=== PATIENT | male | born 1990 | race Caucasian/White ===

== ENCOUNTER 2021-06-24 09:28 | Emergency (ER) | payer OTHER, SELFPAY ==
[2021-06-24 10:20] VITALS: BP 125/81; PULSE 85; RESP 16; TEMP 36.8; O2SAT 100; BMI 24.3
[2021-06-24] MEDS: Fluorescein Sodium STRIP 1 STRIP EYE-LEFT (11:50)
[2021-06-24] MEDS: Tetracaine HCl/PF 0.5% Oph Sol 4 ML DROPS 3 DROP EYE-LEFT (11:50)
--- NOTE | 2021-06-24 11:56 | ED_ITS ---
HPI - Eye Problem General Chief complaint: Eye Problems Stated complaint: piece of metal in eye - work related Time Seen by Provider: 06/24/21 10:49 History of Present Illness HPI Narrative: Patient complains of foreign body sensation and mild pain to the right eye after he was scraping paint and a chip flew into his right eye this morning, no vision loss no eye discharge no photophobia Related Data Previous Rx's Medication Instructions Recorded erythromycin 5 mg/gram (0.5 %) eye 0.5 inch OPHTHALMIC (EYE) TID 3 06/24/21 ointment Days #3.5 g Allergies Allergy/AdvReac Type Severity Reaction Status Date / Time No Known Allergies Allergy Unverified 07/18/20 15:43 Review of Systems Review of Systems: Positive for right eye foreign body sensation and mild discomfort Negatives are no vision change no vision loss no discharge fromeye no headache no photophobia no blurred vision Yes all other systems are reviewed and are negative [facility] Past Medical History Source: nursing notes reviewed Surgical History (Updated 06/24/21 @ 10:24 by Yuko Hinojsoa RN) History of hernia surgery Social History Social History Advance Directives: Yes Advance Directives Information Provided: Yes Advance Directives on File: No Physical Exam Vital Signs: Vital Signs: Last Vital Signs Temp 98.2 F 06/24/21 10:20 Pulse 85 06/24/21 10:20 Resp 16 06/24/21 10:20 BP 125/81 06/24/21 10:20 Pulse Ox 100 06/24/21 10:20 Body Mass Index 24.3 General appearance comfortable no acute distress The head is normocephalic atraumatic Eye exam visual acuity was 2025 bilaterally The left eye was normal in appearance The right eye had no redness no discharge, pupils were equal round reactive to light, extraocular motions were intact, staining of the right eye with flu orescein revealed a small area of dye uptake, no foreign body was identified The neck was supple Respiratory no distress Extremities full range of motion x4 Skin no rash Course Course Course Narrative: Patient with normal symmetric vision, no significant eye pain or photophobia, no foreign body visualized with fluorescein staining is diagnosed with small corneal abrasion and has his own eye doctor to follow with as needed Discharge Plan Discharge Clinical Impression: Corneal abrasion Patient Disposition: Home, Self-Care Additional Instructions: I did not see any foreign body There was a small scratch to the eye which we are treating with antibiotic to prevent infection Follow was scheduled with eye doctor tomorrow Return any time for vision loss, worsening eye pain, any worse condition or any concerns If needed you can follow with [facility] for work related injury Prescriptions: New erythromycin 5 mg/gram (0.5 %) ointment 0.5 inch ophthalmic (eye) TID 3 Days Qty: 3.5 RF: 0 Referrals: [facility] [Provider Group] - 2 days (Corneal abrasion, right eye) Stand Alone Forms: Work/School Release Interventions: ED Discharge Assessment Last Done: 06/24/21 12:15 Discharge Date/Time: 06/24/21 12:15
[2021-06-24] MEDS: Erythromycin Base 0.5% Oph Oin 1 GM TUBE 1 CM EYE-LEFT (12:06)
== END 2021-06-24 12:15 | disposition home or self-care (01) ==
PROVIDERS: Emergency Provider Emergency Medicine
DX: S05.01XA Injury of conjunctiva and corneal abrasion without foreign body, right eye, initial encounter (principal); X58.XXXA Exposure to other specified factors, initial encounter; H57.11 Ocular pain, right eye; Y93.H3 Activity, building and construction; Y92.9 Unspecified place or not applicable; Y99.9 Unspecified external cause status
CPT/HCPCS: 99283; 99284

== ENCOUNTER → 2021-10-27 10:50 | Outpatient (BNVA) | payer OTHER, SELFPAY | PROVIDERS: Visit Provider Physician Assistant Medical | DX: S67.191A Crushing injury of left index finger, initial encounter (principal); S69.82XA Other specified injuries of left wrist, hand and finger(s), initial encounter; W24.0XXA Contact with lifting devices, not elsewhere classified, initial encounter | CPT/HCPCS: 73130; 99204 ==

== ENCOUNTER → 2021-10-29 09:44 | Outpatient (BNVA) | payer OTHER, SELFPAY | PROVIDERS: Visit Provider Physician Assistant | DX: S69.80XD Other specified injuries of unspecified wrist, hand and finger(s), subsequent encounter (principal); W23.0XXA Caught, crushed, jammed, or pinched between moving objects, initial encounter | CPT/HCPCS: 99213 ==

== ENCOUNTER → 2021-11-10 09:49 | Outpatient (BNVA) | payer OTHER, SELFPAY | PROVIDERS: Visit Provider Physician Assistant Medical | DX: S62.631B Displaced fracture of distal phalanx of left index finger, initial encounter for open fracture (principal) | CPT/HCPCS: 99213 ==

== ENCOUNTER → 2021-11-18 09:34 | Outpatient (BNVA) | payer OTHER, SELFPAY | PROVIDERS: Visit Provider Physician Assistant Medical | DX: M20.092 Other deformity of left finger(s) (principal) | CPT/HCPCS: 99213 ==

== ENCOUNTER → 2021-11-20 11:06 | Outpatient (BNVA) | payer OTHER, SELFPAY | PROVIDERS: Visit Provider Physician Assistant Medical | DX: S61.301D Unspecified open wound of left index finger with damage to nail, subsequent encounter (principal); L03.012 Cellulitis of left finger; X58.XXXD Exposure to other specified factors, subsequent encounter | CPT/HCPCS: 99213 ==

== ENCOUNTER → 2022-01-12 09:17 | Outpatient (BNVA) | payer OTHER, SELFPAY | PROVIDERS: Visit Provider Physician Assistant Medical | DX: T15.01XA Foreign body in cornea, right eye, initial encounter (principal); W22.8XXA Striking against or struck by other objects, initial encounter | CPT/HCPCS: 99203 ==